=== PATIENT | male | born 1960 | race Caucasian/White ===

== ENCOUNTER 2023-07-25 12:09 | Emergency (ER) | payer BC ==
[2023-07-25] MEDS ORDERED: Acetaminophen/HYDROcodone 325-10 MG Tab PO ONE (12:58)
== END 2023-07-25 14:15 | disposition home or self-care (01) ==
LOC: KA.ED 12:09
DX: S82.242A Displaced spiral fracture of shaft of left tibia, initial encounter for closed fracture (principal); S82.832A Other fracture of upper and lower end of left fibula, initial encounter for closed fracture; Z88.0 Allergy status to penicillin; W01.0XXA Fall on same level from slipping, tripping and stumbling without subsequent striking against object, initial encounter; Y92.009 Unspecified place in unspecified non-institutional (private) residence as the place of occurrence of the external cause
CPT/HCPCS: 73590-LT; 99284; A9270-GY